=== PATIENT | female | born 1960 | race Two or more races ===

== ENCOUNTER 2018-10-16 19:26 | Emergency (ER) | payer MEDICAID ==
[~2018-10-16] VITALS: Ht 152.4 cm; Wt 83.9 kg
[~2018-10-16 19:26] MED LIST: BENA20TA14; DOCU-94; LEVO25TA9
[2018-10-16] MEDS: SODIUM CHLORIDE 0.9% 1,000 ML IV ONE (21:45)
[2018-10-16 22:26] LABS: Basophils # (auto) 0.1 uL; Basophils % (auto) 1.6 % (0.0-2.0); Eosinophils # (auto) 0.1 uL; Hemoglobin 13.6 g/dL (12.2-16.2); Lymphocytes # (auto) 3.4 uL; Lymphocytes % (auto) 38.3 % (10.0-50.0); Mean Corpuscular Hemoglobin 29.3 pg (28.0-32.0); Mean Corpuscular Hgb Conc. 32.4 g/dL (32.0-36.0); Mean Corpuscular Volume 90.5 fL (80.0-100.0); Monocytes # (auto) 0.6 uL; Neutrophils # (auto) 4.7 uL; Neutrophils % (auto) 52.1 % (37.0-80.0); Nucleated Red Blood Cells % 0.1 %; Platelet Count (auto) 297 10^3/uL (140-450); Red Blood Cells 4.64 10^6/uL (4.0-5.20); Red Cell Distribution Width 15.5 % (11.8-14.3)
[2018-10-16 22:52] LABS: Albumin 3.9 g/dL (3.4-5.0); Anion Gap 8 (5-15); BUN/Creatinine Ratio 15.3; Blood Urea Nitrogen 15 mg/dL (7-18); Calcium 9.2 mg/dL (8.5-10.1); Carbon Dioxide 25 mmol/L (21-32); Chloride 103 mmol/L (98-107); GFR African American 76 mL/min; GFR Non-African American 63 mL/min; Glucose 79 mg/dL (74-106); Potassium 4.3 mmol/L (3.5-5.1); Sodium 136 mmol/L (136-145)
[2018-10-16 23:09] LABS: Alanine Aminotransferase 208 U/L (13-56); Alkaline Phosphatase 168 U/L (45-117); Aspartate Aminotransferase 92 U/L (15-37); Bilirubin, Total 0.3 mg/dL (0.2-1.0); Total Protein 8.3 g/dL (6.4-8.2)
[2018-10-17] MEDS: methylPREDNISolone SOD SUCC 125 MG/2 ML VL IV ONE (00:10)
[2018-10-17] MEDS: IPRATROPIUM BROM 0.5 MG/2.5ML INH SOL NEB ONE (00:58)
[2018-10-17] MEDS: ALBUTEROL SULF 2.5 MG/0.5ML(0.5%) NEB SOLN NEB ONE (00:58)
[2018-10-17 01:30] VITALS: BP 138/72
== END 2018-10-17 01:32 | disposition home or self-care (01) ==
LOC: ER 19:26
DX: J45.901 Unspecified asthma with (acute) exacerbation (principal); J20.9 Acute bronchitis, unspecified; I10 Essential (primary) hypertension; E07.9 Disorder of thyroid, unspecified; Z90.49 Acquired absence of other specified parts of digestive tract
CPT/HCPCS: 36415; 71046; 80053; 84484; 85025; 85379; 93005; 94640; 96374; 99284; J2930; J7030; J7611; J7644

== ENCOUNTER 2018-10-17 21:24 | Emergency (ER) | payer MEDICAID ==
[~2018-10-17] VITALS: Ht 152.4 cm; Wt 83.9 kg
[2018-10-17 23:29] VITALS: BP 142/84
== END 2018-10-18 00:13 | disposition home or self-care (01) ==
LOC: ER 21:24
DX: T78.40XA Allergy, unspecified, initial encounter (principal); T36.8X5A Adverse effect of other systemic antibiotics, initial encounter; F41.9 Anxiety disorder, unspecified; F32.9 Major depressive disorder, single episode, unspecified; I10 Essential (primary) hypertension; E07.9 Disorder of thyroid, unspecified; Z90.49 Acquired absence of other specified parts of digestive tract; Y92.89 Other specified places as the place of occurrence of the external cause

== ENCOUNTER 2019-09-11 11:32 | Inpatient (IN) | payer MEDICAID ==
[~2019-09-11] VITALS: Ht 152.4 cm; Wt 91.5 kg
[2019-09-11 12:08] LABS: Basophils # (auto) 0 uL; Basophils % (auto) 0.5 % (0.0-2.0); Eosinophils # (auto) 0 uL; Eosinophils % (auto) 0.5 % (0.0-7.0); Hemoglobin 13.1 g/dL (12.2-16.2); Lymphocytes # (auto) 2.1 uL; Lymphocytes % (auto) 24.8 % (10.0-50.0); Mean Corpuscular Hemoglobin 30.1 pg (28.0-32.0); Mean Corpuscular Hgb Conc. 33.5 g/dL (32.0-36.0); Mean Corpuscular Volume 89.9 fL (80.0-100.0); Monocytes # (auto) 0.6 uL; Monocytes % (auto) 7.2 % (0.0-12.0); Neutrophils # (auto) 5.8 uL; Platelet Count (auto) 246 10^3/uL (140-450); Red Blood Cells 4.33 10^6/uL (4.0-5.20); Red Cell Distribution Width 15.7 % (11.8-14.3); White Blood Cell 8.6 10^3/uL (4.4-10.8)
[2019-09-11] MEDS ORDERED: SODIUM CHLORIDE 0.9% 500 ML IVB ONE (12:17)
[2019-09-11] MEDS ORDERED: ONDANSETRON HCL 4 MG/2 ML VIAL IV ONE (12:30)
[2019-09-11] MEDS ORDERED: MORPHINE SULFATE 4 MG/ML SYR/VIAL IV ONE (12:30)
[2019-09-11 12:35] LABS: Albumin 3.8 g/dL (3.4-5.0); BUN/Creatinine Ratio 11.9; Calcium 8.7 mg/dL (8.5-10.1); Potassium 4.1 mmol/L (3.5-5.1)
[2019-09-11 12:38] LABS: Bilirubin, Total 0.5 mg/dL (0.2-1.0); Total Protein 7.8 g/dL (6.4-8.2)
[2019-09-11 12:39] LABS: Urine Bacteria NONE SEEN /hpf (None Seen); Urine Blood Negative /uL (Negative); Urine Mucus FEW (None Seen); Urine Specific Gravity 1.016 (1.001-1.035); Urine WBC 2 /hpf (0 - 5)
[2019-09-11] MEDS ORDERED: metroNIDAZOLE 500MG/100ML 100 ML IV ONE (14:00)
[2019-09-11] MEDS ORDERED: cefTRIAXone 1GM/50ML D5W 50 ML IV ONE (14:30)
[2019-09-11] MEDS ORDERED: ACETAMINOPHEN 500 MG TAB PO PRN (14:30)
[2019-09-11] MEDS ORDERED: PROMETHAZINE HCL 25 MG/ML 1ML IV PRN (14:30)
[2019-09-11] MEDS ORDERED: TEMAZEPAM 15 MG CAP PO PRN (14:30)
[2019-09-11] MEDS ORDERED: MORPHINE SULFATE 4 MG/ML SYR/VIAL IV PRN (14:30)
[2019-09-11] MEDS: SODIUM CHLORIDE 0.9% 1,000 ML IV SCH ×2 (15:44→19:13)
--- NOTE | 2019-09-11 17:38 | NUR ---
Patient Arrived on Unit Patient arrived on unit from ED via wheelchair. Pt is a/ox4 with no s/s of distress or SOB. Safety measures maintained with call light within reach, bed in lowest position and side rails up. Will continue to monitor for changes.
[2019-09-11 17:55] VITALS: BP 126/78
[2019-09-11] MEDS ORDERED: MORPHINE SULF INJ 2 MG/ML SYRINGE 1ML IV PRN (18:00)
[2019-09-11] MEDS ORDERED: LEVO25TA6 PO (18:06)
[2019-09-11] MEDS ORDERED: BENA40TA7 PO (18:07)
[2019-09-11] MEDS ORDERED: ASEN10SU3 SL (20:16)
[2019-09-11] MEDS ORDERED: CLON1TAB10 PO (20:16)
--- NOTE | 2019-09-11 20:33 | NUR ---
HOME MEDICATION PATIENT IS CONCERNED ABOUT TAKING HER HOME MEDICATIONS, HOME MEDS HAVE BEEN PUT INTO PATIENTS MED REC, CLONAZEPAM 1MG AND ASENPINE 10MG ARE THE MEDICATIONS SHE IS STATING SHE NEEDS TO TAKE TONIGHT. WILL CALL HOSPITALIST FOR ORDERS.
[2019-09-11] MEDS ORDERED: clonazePAM 0.5 MG TAB PO ONE (21:00)
[2019-09-11 22:00] VITALS: BP 140/84
[2019-09-11] MEDS: metroNIDAZOLE 500MG/100ML 100 ML IV SCH (22:03)
[2019-09-11] MEDS: FAMOTIDINE 20 MG TAB PO SCH (22:03)
[2019-09-12] MEDS: traMADol HCL 50 MG TAB PO PRN ×2 (00:43→09:30)
[2019-09-12] MEDS: metroNIDAZOLE 500MG/100ML 100 ML IV SCH ×2 (04:43→15:06)
[2019-09-12 05:36] VITALS: BP 131/79
--- NOTE | 2019-09-12 06:52 | NUR ---
PT RESTED WELL THROUGHOUT THE SHIFT;DENIES ANY PAIN;VITAL SIGNS STABLE WITH CALL LIGHT IN REACH.
--- NOTE | 2019-09-12 07:30 | NUR ---
Opening Shift Note Assumed care of patient, awake and alert. No S/S of distress/SOB. Pain reported, pain management options discussed with patient. Instructed on POC and to call for assist PRN, will continue to monitor for changes Q1hr and PRN.
[2019-09-12 08:00] VITALS: BP 125/74
[2019-09-12 09:00] VITALS: BP 125/74
[2019-09-12] MEDS ORDERED: cefTRIAXone 1GM/50ML D5W 50 ML IV SCH (09:00)
[2019-09-12] MEDS: FAMOTIDINE 20 MG TAB PO SCH (09:30)
[2019-09-12] MEDS: SODIUM CHLORIDE 0.9% 1,000 ML IV SCH (09:30)
[2019-09-12 13:00] VITALS: BP 141/87
[2019-09-12 17:00] VITALS: BP 125/78
[2019-09-12] MEDS ORDERED: METR500T PO (17:25)
[2019-09-12] MEDS ORDERED: LEVO500T21 PO (17:25)
--- NOTE | 2019-09-12 18:09 | NUR ---
Discharge planning per consult, patient has orders for a home health evaluation. Referral sent to [facility], and [facility]. Will follow up on auth and acceptance on Sunday, 09.15.19. If patient is medically cleared, they are okay to discharge. Addendum: 09/15/19 at 1110 by RENATA GREENE Placed a follow up call to [facility], spoke with [facility] and was advised that they will accept this patient onto services. [id number] number was provided. Start of care will be 09.15 or 09.16.19. Addendum: 09/15/19 at 1419 by RENATA GREENE [facility] accepted patient and start of care will be 09.15 or 09.16.19 per Amalia at [facility]. [id number]
--- NOTE | 2019-09-12 19:05 | NUR ---
Opening Shift Note Received report from day shift nurseCrispin. Assumed care of patient. patient is awake and alert x 4 with No S/S of distress/SOB or pain. Bed is in lowest position with side rails up x 2. Bed brakes are locked and call light is with in reach. HOB is 30 degrees. Instructed on POC and to call for assist PRN, will continue to monitor for changes Q1hr and PRN.
[2019-09-12] MEDS ORDERED: HYDR-4833 PO (19:55)
--- NOTE | 2019-09-12 19:55 | NUR ---
pom Patient's own med received from pharmacy and given to patient.
--- NOTE | 2019-09-12 21:10 | NUR ---
md Md Rios called and made aware of medication prescribed of which patient has an allergy to. will notify pharmacy where patient picks up prescription to change medication.
--- NOTE | 2019-09-12 21:15 | NUR ---
Discharge instructions given as ordered. Encourage to follow up with PMD as instructed. All questions and concerns addressed. Patient verbalized understanding. Medication reconciliation form completed and copy given to patient. Home medications held in Pharmacy returned to patient, IV removed with catheter intact, pressure dressing applied. Patient taken to vehicle ambulating with all personal belongings, accompanied by staff. No distress noted at time of departure.
== END 2019-09-12 21:15 | disposition home health service (06) | DRG 244 ==
LOC: ER 11:32 → OVERFLOW 11:33 → EAST 17:32
PROVIDERS: ADMIT Internal Medicine; ATTEND Hospitalist
DX: K57.32 Diverticulitis of large intestine without perforation or abscess without bleeding (principal); F25.9 Schizoaffective disorder, unspecified; N39.0 Urinary tract infection, site not specified; K21.9 Gastro-esophageal reflux disease without esophagitis; I10 Essential (primary) hypertension; E66.9 Obesity, unspecified; E03.9 Hypothyroidism, unspecified; F32.9 Major depressive disorder, single episode, unspecified; F41.9 Anxiety disorder, unspecified; Z68.39 Body mass index [BMI] 39.0-39.9, adult; Z88.1 Allergy status to other antibiotic agents; Z88.8 Allergy status to other drugs, medicaments and biological substances; Z80.9 Family history of malignant neoplasm, unspecified; Z90.49 Acquired absence of other specified parts of digestive tract
CPT/HCPCS: 36415; 74176; 80053; 81001; 83690; 85025; 93005; 94761; G0378; J0696; J2405; J3490

== ENCOUNTER 2022-11-08 14:30 | Inpatient (IN) | payer MEDICAID ==
[~2022-11-08] VITALS: Ht 152.4 cm; Wt 100.3 kg
[~2022-11-08 14:30] MED LIST changes: +ASEN10SU3 SL; +CLON-853 PO; +HYDR-4833 PO; +LEVO25TA6 PO; -LEVO25TA9; +LEVO500T31 PO; +METR500T PO
[2022-11-08 16:00] LABS: Basophils # (auto) 0 10 ^3/uL (0-0.2); Basophils % (auto) 0.1 % (0.0-2.0); Eosinophils # (auto) 0 10 ^3/uL (0-0.8); Hematocrit 35.6 % (36.0-46.0); Hemoglobin 12.1 g/dL (12.2-16.2); Lymphocytes # (auto) 1.7 10 ^3/uL (0.4-5.4); Mean Corpuscular Hemoglobin 30.5 pg (28.0-32.0); Mean Corpuscular Hgb Conc. 33.9 g/dL (32.0-36.0); Mean Corpuscular Volume 89.9 fL (80.0-100.0); Monocytes # (auto) 1.7 10 ^3/uL (0-1.3); Monocytes % (auto) 7.1 % (0.0-12.0); Neutrophils # (auto) 21.3 10 ^3/uL (1.6-8.6); Neutrophils % (auto) 85.8 % (37.0-80.0); Red Blood Cells 3.96 10^6/uL (4.0-5.20); Red Cell Distribution Width 14.7 % (11.8-14.3); White Blood Cell 24.8 10^3/uL (4.4-10.8)
[2022-11-08 16:12] LABS: Albumin 3.3 g/dL (3.4-5.0); Calcium 8.5 mg/dL (8.5-10.1)
[2022-11-08 16:17] LABS: BUN/Creatinine Ratio 11.8; Total Protein 7.1 g/dL (6.4-8.2)
[2022-11-08 16:22] LABS: Urine Bacteria FEW /hpf (None Seen); Urine Blood 1+ /uL (Negative); Urine Specific Gravity 1.004 (1.001-1.035); Urine WBC 179 /hpf (0 - 5)
[2022-11-08] MEDS ORDERED: cefTRIAXone 1GM/50ML D5W 50 ML IV ONE (17:00)
[2022-11-08 18:00] LABS: Lactic Acid w/Reflex 2.2 mmol/L (0.4-2.0)
[2022-11-08] MEDS ORDERED: SODIUM CHLORIDE 0.9% 1,000 ML IV ONE (22:15)
[2022-11-08] MEDS ORDERED: MORPHINE SULFATE INJ 2 MG/ml SYRG IV PRN (22:15)
[2022-11-08] MEDS ORDERED: NITROGLYCERIN 0.4 MG SL TAB SL PRN (22:15)
[2022-11-08] MEDS ORDERED: SODIUM CHLORIDE 0.9% 2,900 ML IV ONE (22:15)
[2022-11-08] MEDS ORDERED: hydrALAZINE HCL 20 MG/ML VL IV PRN (22:45)
[2022-11-08 22:55] LABS: Cholesterol 207 mg/dL (< 200)
[2022-11-08 22:58] LABS: Amylase 26 U/L (25-115); HDL Cholesterol 99 mg/dL (40-59); LDL Cholesterol 88 mg/dL (< 100); Lipase 44 U/L (73-393); Triglycerides 74 mg/dL (< 150)
[2022-11-08 23:41] LABS: INR 1.01 (0.9-1.15); Partial Thromboplastin Time 28.6 sec (24.6-33.4)
[2022-11-08] MEDS: clonazePAM 0.5 MG TAB PO SCH (23:41)
[2022-11-09] MEDS: SODIUM CHLORIDE 0.9% 1,000 ML IV SCH ×3 (02:02→17:24)
[2022-11-09] MEDS: MORPHINE SULFATE INJ 2 MG/ml SYRG IV PRN (03:07)
[2022-11-09] MEDS: ONDANSETRON HCL 4 MG/2 ML VIAL IV PRN ×2 (03:09→08:55)
[2022-11-09] MEDS ORDERED: CEFEPIME 1GM/ 50ML 50 ML IV SCH (06:00)
[2022-11-09] MEDS: LEVOTHYROXINE SODIUM 25 MCG TAB PO SCH (06:47)
[2022-11-09 08:09] LABS: Basophils # (auto) 0 10 ^3/uL (0-0.2); Eosinophils # (auto) 0 10 ^3/uL (0-0.8); Hematocrit 28.4 % (36.0-46.0); Hemoglobin 9.8 g/dL (12.2-16.2); Lymphocytes # (auto) 1.5 10 ^3/uL (0.4-5.4); Lymphocytes % (auto) 7.2 % (10.0-50.0); Mean Corpuscular Hemoglobin 30.5 pg (28.0-32.0); Mean Corpuscular Hgb Conc. 34.3 g/dL (32.0-36.0); Mean Corpuscular Volume 88.8 fL (80.0-100.0); Monocytes # (auto) 2.3 10 ^3/uL (0-1.3); Monocytes % (auto) 11.3 % (0.0-12.0); Neutrophils # (auto) 16.9 10 ^3/uL (1.6-8.6); Neutrophils % (auto) 81.5 % (37.0-80.0); Red Cell Distribution Width 14.8 % (11.8-14.3); White Blood Cell 20.8 10^3/uL (4.4-10.8)
[2022-11-09 08:20] LABS: Potassium 3.6 mmol/L (3.5-5.1)
[2022-11-09 08:28] LABS: Albumin 2.4 g/dL (3.4-5.0); BUN/Creatinine Ratio 12.8; Bilirubin, Total 0.6 mg/dL (0.2-1.0); Calcium 7.4 mg/dL (8.5-10.1); Total Protein 6.2 g/dL (6.4-8.2)
[2022-11-09] MEDS: ACETAMINOPHEN 325 MG TAB PO PRN ×2 (08:41→18:58)
[2022-11-09 08:43] LABS: Hepatitis B Surface Antibody Negative (Negative)
[2022-11-09] MEDS: PIPERACILLIN-TAZOB 3.375GM 100 ML IV SCH ×3 (09:17→22:18)
[2022-11-09 09:21] LABS: Hepatitis A Total Antibody Positive (Negative)
[2022-11-09] MEDS: BENAZEPRIL HCL 10 MG TAB PO SCH (10:00)
[2022-11-09] MEDS: ENOXAPARIN SOD 40 MG/0.4 ML SYRINGE SC SCH (10:49)
[2022-11-09 13:35] LABS: Hepatitis C Antibody Negative (Negative)
[2022-11-09 16:30] VITALS: BP 130/68
[2022-11-09 16:43] VITALS: BP 134/82
[2022-11-09] MEDS: ASENAPINE MALEATE SL SCH ×2 (16:44→18:00)
[2022-11-09] MEDS: clonazePAM 0.5 MG TAB PO SCH (17:25)
[2022-11-09 20:00] VITALS: BP 114/69
[2022-11-09 23:12] VITALS: BP 114/69
[2022-11-10] MEDS: SODIUM CHLORIDE 0.9% 1,000 ML IV SCH ×3 (00:04→16:56)
[2022-11-10] MEDS: MORPHINE SULFATE INJ 2 MG/ml SYRG IV PRN (00:21)
[2022-11-10 05:00] VITALS: BP 117/63
[2022-11-10] MEDS: LEVOTHYROXINE SODIUM 25 MCG TAB PO SCH (06:09)
[2022-11-10] MEDS: PIPERACILLIN-TAZOB 3.375GM 100 ML IV SCH ×3 (06:09→21:32)
[2022-11-10 06:11] LABS: Basophils # (auto) 0 10 ^3/uL (0-0.2); Basophils % (auto) 0.1 % (0.0-2.0); Eosinophils # (auto) 0 10 ^3/uL (0-0.8); Eosinophils % (auto) 0.2 % (0.0-7.0); Hematocrit 28.6 % (36.0-46.0); Hemoglobin 9.3 g/dL (12.2-16.2); Lymphocytes # (auto) 1.5 10 ^3/uL (0.4-5.4); Lymphocytes % (auto) 9.7 % (10.0-50.0); Mean Corpuscular Hemoglobin 29.1 pg (28.0-32.0); Mean Corpuscular Hgb Conc. 32.5 g/dL (32.0-36.0); Mean Corpuscular Volume 89.5 fL (80.0-100.0); Monocytes # (auto) 1.5 10 ^3/uL (0-1.3); Monocytes % (auto) 9.9 % (0.0-12.0); Neutrophils # (auto) 12.5 10 ^3/uL (1.6-8.6); Neutrophils % (auto) 80.1 % (37.0-80.0); Red Blood Cells 3.19 10^6/uL (4.0-5.20); White Blood Cell 15.6 10^3/uL (4.4-10.8)
[2022-11-10] MEDS: ACETAMINOPHEN 325 MG TAB PO PRN ×3 (06:23→21:33)
[2022-11-10 06:30] LABS: Calcium 8.1 mg/dL (8.5-10.1); Potassium 3.7 mmol/L (3.5-5.1)
[2022-11-10 06:32] LABS: BUN/Creatinine Ratio 12.2; Magnesium 2.7 mg/dL (1.6-2.6)
[2022-11-10 08:00] VITALS: BP 114/69
[2022-11-10 09:00] VITALS: BP 119/67
[2022-11-10] MEDS: ENOXAPARIN SOD 40 MG/0.4 ML SYRINGE SC SCH (10:12)
[2022-11-10] MEDS: BENAZEPRIL HCL 10 MG TAB PO SCH (10:13)
[2022-11-10 13:00] VITALS: BP 110/72
[2022-11-10] MEDS: DOCUSATE SOD 100 MG CAP PO SCH (16:57)
[2022-11-10 17:00] VITALS: BP 113/68
[2022-11-10] MEDS: clonazePAM 0.5 MG TAB PO SCH (18:54)
[2022-11-10] MEDS: ASENAPINE MALEATE SL SCH (18:55)
[2022-11-10 22:00] VITALS: BP 130/81
[2022-11-11] MEDS: SODIUM CHLORIDE 0.9% 1,000 ML IV SCH ×3 (00:15→18:57)
[2022-11-11 05:00] VITALS: BP 138/89
[2022-11-11] MEDS: PIPERACILLIN-TAZOB 3.375GM 100 ML IV SCH ×2 (05:48→15:29)
[2022-11-11] MEDS: ACETAMINOPHEN 325 MG TAB PO PRN ×3 (05:48→20:29)
[2022-11-11] MEDS: LEVOTHYROXINE SODIUM 25 MCG TAB PO SCH (06:41)
[2022-11-11 08:40] VITALS: BP 130/77
[2022-11-11] MEDS: BENAZEPRIL HCL 10 MG TAB PO SCH (10:00)
[2022-11-11] MEDS: ENOXAPARIN SOD 40 MG/0.4 ML SYRINGE SC SCH (10:00)
[2022-11-11] MEDS: DOCUSATE SOD 100 MG CAP PO SCH ×2 (10:00→21:19)
[2022-11-11 12:58] VITALS: BP 134/84
[2022-11-11 17:00] VITALS: BP 131/87
[2022-11-11] MEDS: cefTRIAXone 1GM/50ML D5W 50 ML IV SCH (17:50)
[2022-11-11] MEDS ORDERED: clonazePAM 0.5 MG TAB PO SCH (21:00)
[2022-11-11] MEDS ORDERED: ASENAPINE MALEATE SL SCH (21:00)
[2022-11-11 22:00] VITALS: BP 137/83
[2022-11-12] MEDS: SODIUM CHLORIDE 0.9% 1,000 ML IV SCH ×2 (03:52→09:33)
[2022-11-12] MEDS: ACETAMINOPHEN 325 MG TAB PO PRN ×2 (03:52→11:57)
[2022-11-12 05:00] VITALS: BP 152/90
[2022-11-12] MEDS: LEVOTHYROXINE SODIUM 25 MCG TAB PO SCH (07:00)
[2022-11-12 07:19] LABS: Hematocrit 31.4 % (36.0-46.0); Hemoglobin 10.7 g/dL (12.2-16.2); Mean Corpuscular Hemoglobin 30.3 pg (28.0-32.0); Mean Corpuscular Hgb Conc. 34.1 g/dL (32.0-36.0); Mean Corpuscular Volume 88.9 fL (80.0-100.0); Red Blood Cells 3.53 10^6/uL (4.0-5.20)
[2022-11-12 07:24] LABS: Basophils % (manual) 0 (0.0-2.0); Blast Cells 0; Eosinophils % (manual) 0 (0-7); Promyelocytes % 0; Reactive Lymphocytes 0
[2022-11-12 07:35] LABS: Albumin 2.6 g/dL (3.4-5.0); BUN/Creatinine Ratio 7.1; Calcium 8.5 mg/dL (8.5-10.1); Magnesium 2.4 mg/dL (1.6-2.6); Potassium 4.6 mmol/L (3.5-5.1)
[2022-11-12 07:38] LABS: Bilirubin, Total 0.5 mg/dL (0.2-1.0); Total Protein 6.7 g/dL (6.4-8.2)
[2022-11-12 09:00] VITALS: BP 152/83
[2022-11-12] MEDS: cefTRIAXone 1GM/50ML D5W 50 ML IV SCH (09:29)
[2022-11-12] MEDS: ENOXAPARIN SOD 40 MG/0.4 ML SYRINGE SC SCH (09:29)
[2022-11-12] MEDS: DOCUSATE SOD 100 MG CAP PO SCH (09:30)
[2022-11-12] MEDS: BENAZEPRIL HCL 10 MG TAB PO SCH (09:30)
[2022-11-12 09:57] LABS: Band Neutrophils % (manual) 17; Lymphocytes % (manual) 28 (10.0-50.0); Metamyelocytes % 1; Monocytes % (manual) 10 (0-12); Myelocytes % 1
[2022-11-12 13:00] VITALS: BP 144/92
[2022-11-12] MEDS ORDERED: ALBUAER3 IN (13:12)
[2022-11-12] MEDS ORDERED: CEFD300C2 PO (13:12)
[2022-11-12 14:06] VITALS: BP 144/92
[2022-11-12 17:00] VITALS: BP 134/84
== END 2022-11-12 17:50 | disposition home or self-care (01) | DRG 720 ==
LOC: ER 14:30 → TELE 22:31 → TELE-EAST 11-09 15:02
PROVIDERS: ADMIT Registered Nurse; ATTEND Internal Medicine
DX: A41.9 Sepsis, unspecified organism (principal); F25.9 Schizoaffective disorder, unspecified; D17.71 Benign lipomatous neoplasm of kidney; E03.9 Hypothyroidism, unspecified; E66.01 Morbid (severe) obesity due to excess calories; F32.A Depression, unspecified; F41.9 Anxiety disorder, unspecified; R74.8 Abnormal levels of other serum enzymes; Z20.822 Contact with and (suspected) exposure to COVID-19; I10 Essential (primary) hypertension; N10 Acute pyelonephritis; Z88.1 Allergy status to other antibiotic agents; Z88.8 Allergy status to other drugs, medicaments and biological substances; Z71.3 Dietary counseling and surveillance; Z68.41 Body mass index [BMI] 40.0-44.9, adult; Z86.19 Personal history of other infectious and parasitic diseases; Z90.49 Acquired absence of other specified parts of digestive tract
CPT/HCPCS: 36415; 71045; 74176; 76700; 80048; 80053; 80061; 81001; 82150; 83036; 83605; 83690; 83735; 84443; 84484; 85007; 85025; 85027; 85610; 85730; 86704; 86706; 86708; 86709; 86803; 87040; 87086; 87088; 87186; 87340; 87426; 96361; 96365; 96367; 96372; 96375; G0378; J0696; J2405; J2543